=== PATIENT | female | born 1955 | race Caucasian/White ===

== ENCOUNTER 2022-05-25 08:54 | Emergency (ER) | payer MEDICARE ==
[2022-05-25 09:07] VITALS: BP 157/80; PULSE 72
== END 2022-05-25 09:42 | disposition home or self-care (01) ==
LOC: JD.ED 08:54
DX: M54.50 Low back pain, unspecified (principal); Z90.49 Acquired absence of other specified parts of digestive tract
CPT/HCPCS: 99283